=== PATIENT | female | born 1960 | race Caucasian/White ===

== ENCOUNTER 2017-10-26 10:50 | Emergency (ER) | payer BC ==
[2017-10-26] MEDS ORDERED: NA CHLORIDE 0.9% 1,000 ML ONE (11:27)
[2017-10-26] MEDS ORDERED: ONDANSETRON 4 MG/2 ML VIAL ONE (11:27)
[2017-10-26] MEDS ORDERED: IPRATROPIUM BROM 0.5MG/2.5ML ONE (11:29)
[2017-10-26] MEDS ORDERED: ALBUTEROL 2.5 MG/3 ML NEB SOL ONE (11:29)
[2017-10-26 11:33] LABS: Absolute Lymphocytes (CBC) 2.7 K/uL (0.7-4.9); Absolute Monocytes 0.6 K/uL (0.1-1.3); Absolute Neutrophil 9.1 K/uL (1.8-8.0); Basophils % 0.6 % (0-1.3); Eosinophils % 2.6 % (0-4.4); Hematocrit 44.2 % (36.0-45.0); MCH 24.9 pg (27.0-35.0); MCV 77.3 fL (80-100); MPV 7.2 fL (7.6-11.3); Monocytes % 4.8 % (3.3-12.3); RBC Red Blood Cell Count 5.71 M/uL (3.86-4.86)
--- NOTE | 2017-10-26 11:50 | RAD REPORT ---
EXAM DESCRIPTION: RAD - Chest Pa And Lat (2 Views) - 10/26/2017 11:34 am CLINICAL HISTORY: COUGH Chest pain. COMPARISON: Chest Pa And Lat (2 Views) dated 07/04/2017; Chest Pa And Lat (2 Views) dated 09/05/2016 FINDINGS: The lungs are clear. The heart is normal in size. No displaced fractures. IMPRESSION: No acute or concerning finding suspected.
[2017-10-26 12:22] LABS: ALT/SGPT 34 U/L (12-78); AST/SGOT 28 U/L (15-37); Albumin 3.9 g/dL (3.4-5.0); Alkaline Phosphatase 72 U/L (45-117); Amylase Level 39 U/L (25-115); BUN Blood Urea Nitrogen 13 mg/dL (7-18); Bicarbonate 33 mmol/L (21-32); Bilirubin Direct 0.2 mg/dL (0-0.2); Bilirubin Total 0.9 mg/dL (0.2-1.0); Glucose Level 184 mg/dL (74-106); Lipase 155 U/L (73-393); Protein, Total 7.3 g/dL (6.4-8.2); Sodium Level 128 mmol/L (136-145)
[2017-10-26 12:26] LABS: Potassium 2.7 mmol/L (3.5-5.1)
[2017-10-26] MEDS ORDERED: POTASSIUM 25 MEQ EFFERV TAB ONE (12:37)
--- NOTE | 2017-10-26 13:18 | EDPHYS ---
Physician Documentation [facility] Name: Ashley Alonzo Age: 57 yrs Sex: Female : 1960 Arrival Date: 10/26/2017 Time: 10:53 Bed 13 Private MD: Charles Raymond V ED Physician Adalberto Pepper HPI: 10/26 11:14 This 57 yrs old Female presents to ER via Ambulatory with complaints of jmm Nausea/Vomiting. 11:14 The patient presents to the emergency department with vomiting, diarrhea. Onset: The jmm symptoms/episode began/occurred gradually, 2 week(s) ago. Possible causes: unknown. This is a 57 year old female with a history of DM, HTN that presents to the ED with cough, vomiting, and diarrhea which have been worsening over the past 2 weeks. Patient states she recently finished a course of antibiotics and is on the last day of an oral steroid. Patient denies fever but admits to chills. . Historical: - Allergies: 10:58 PENICILLINS; sv - Home Meds: 10:58 Metformin Oral [Active]; sv - PMHx: 10:58 Diabetes - NIDDM; Hypertension; sv - PSHx: 10:58 ; Appendectomy; Cholecystectomy; sv - Immunization history:: Adult Immunizations up to date. - Social history:: Smoking status: Patient/guardian denies using tobacco. - Ebola Screening: : No symptoms or risks identified at this time. ROS: 11:14 Eyes: Negative for injury, pain, redness, and discharge, Cardiovascular: Negative for jmm chest pain, palpitations, and edema. 11:14 Back: Negative for injury and pain, : Negative for injury, bleeding, discharge, and swelling, MS/Extremity: Negative for injury and deformity, Skin: Negative for injury, rash, and discoloration, Neuro: Negative for headache, weakness, numbness, tingling, and seizure. 11:14 Constitutional: Positive for chills. 11:14 Respiratory: Positive for cough. 11:14 Abdomen/GI: Positive for nausea and vomiting, vomiting, diarrhea. 11:14 All other systems are negative. Exam: 11:14 Head/Face: atraumatic. Chest/axilla: Normal chest wall appearance and motion. jmm Nontender with no deformity. No lesions are appreciated. Cardiovascular: Regular rate and rhythm. No gallops, murmurs, or rubs. Full/Equal distal pulses. Respiratory: Lungs have equal breath sounds bilaterally, clear to auscultation. No rales, rhonchi or wheezes noted. No increased work of breathing, no retractions or nasal flaring. Abdomen/GI: Soft, non-tender, with normal bowel sounds. No distension or tympany. No guarding or rebound. No evidence of tenderness throughout. 11:14 Constitutional: The patient appears in no acute distress, alert, awake. 11:14 Skin: Appearance: Color: normal in color. 11:14 Neuro: Orientation: is normal, Mentation: is normal, Memory: is normal. 11:14 Psych: Behavior/mood is pleasant, cooperative. Vital Signs: 10:58 BP 126 / 91; Pulse 112; Resp 18; Temp 98.1; Pulse Ox 97% ; Weight 100.24 kg; Height 5 sv ft. 8 in. (172.72 cm); Pain 0/10; 11:49 BP 97 / 74; Pulse 95; Resp 18; Pulse Ox 100% on R/A; Pain 0/10; em 12:17 BP 106 / 67; Pulse 99; Resp 18; Pulse Ox 100% on Nebulizer Mask; em 13:47 BP 113 / 67; Pulse 102; Resp 17; Pulse Ox 97% on R/A; Pain 0/10; em 10:58 Body Mass Index 33.60 (100.24 kg, 172.72 cm) sv MDM: 11:10 Patient medically screened. [facility] 13:16 Data reviewed: vital signs, nurses notes, lab test result(s), radiologic studies, plain [facility] films. Counseling: I had a detailed discussion with the patient and/or guardian regarding: the historical points, exam findings, and any diagnostic results supporting the discharge/admit diagnosis, lab results, radiology results, smoking cessation. Response to treatment: the patient's symptoms have markedly improved after treatment. ED course: After administration of IV fluids, patient states that she feels much better. Patient advised to follow up with PCP or return to the ED if SOB worsens or if she is unable to tolerate fluids by mouth. Patient has no abdominal pain on palpation. I do not currently suspect appendicitis. . 10/26 11:00 Order name: Amylase, Serum; Complete Time: 12:36 [facility] 10/26 11:00 Order name: Basic Metabolic Panel; Complete Time: 12:36 [facility] 10/26 11:00 Order name: CBC with Diff; Complete Time: 11:44 [facility] 10/26 11:00 Order name: Creatinine for Radiology; Complete Time: 11:56 [facility] 10/26 11:00 Order name: Hepatic Function; Complete Time: 12:36 [facility] 10/26 11:00 Order name: Lipase; Complete Time: 12:36 [facility] 10/26 11:00 Order name: IV Saline Lock; Complete Time: 12:08 [facility] 10/26 11:00 Order name: Ketone, Serum; Complete Time: 12:36 [facility] 10/26 11:11 Order name: Chest Pa And Lat (2 Views) XRAY; Complete Time: 11:51 [facility] 10/26 11:00 Order name: Labs collected and sent; Complete Time: 12:08 [facility] Administered Medications: 11:46 Drug: NS 0.9% 1000 ml Route: IV; Rate: 1 bolus; Site: left antecubital; em 12:36 Follow up: IV Status: Completed infusion; IV Intake: 1000ml em 11:46 Drug: DuoNeb (3:1) (2.5 mg - 0.5 mg) 3 ml Route: Nebulizer; em 12:36 Follow up: Response: No adverse reaction; Wheezing diminished em 11:48 Drug: Zofran 4 mg Route: IVP; Site: left antecubital; iw 12:36 Follow up: Response: No adverse reaction em 12:43 Drug: K-Lyte Effervescent Tablet 50 mEq Route: PO; em 13:19 Follow up: Response: No adverse reaction em Disposition: 16:36 Co-signature as Attending Physician, Adalberto Pepper MD. rn Disposition: 10/26/17 13:18 Discharged to Home. Impression: Acute bronchitis, Diarrhea, unspecified, Vomiting. - Condition is Stable. - Discharge Instructions: Acute Bronchitis, Diarrhea, Nausea and Vomiting. - Prescriptions for Florastor - take 1 tablet by ORAL route once daily for 5 days; 5 tablet. Zofran 4 mg Oral Tablet - take 1 tablet by ORAL route every 12 hours As needed; 20 tablet. Albuterol Sulfate 90 mcg/actuation Inhalation - inhale 1-2 puff by INHALATION route every 4-6 hours; 1 Inhaler. - Medication Reconciliation Form, Thank You Letter, Antibiotic Education, Prescription Opioid Use form. - Follow up: Charles Raymond MD; When: 2 - 3 days; Reason: Continuance of care. Signatures: Dispatcher [employer] Maddie Bishop, RN RN Cory Black PA PA Collins Blake, WOOL CARDER WOOL CARDER em Estephania Prince RN RN iw Nieto, Roman, MD MD furnace erector: (The following items were deleted from the chart) 13:20 11:00 Urine Dipstick-Ancillary ordered. [facility] em 13:49 13:18 10/26/2017 13:18 Discharged to Home. Impression: Acute bronchitis; Diarrhea, em unspecified; Vomiting. Condition is Stable. Forms are Medication Reconciliation Form, Thank You Letter, Antibiotic Education, Prescription Opioid Use. Follow up: Charles Raymond; When: 2 - 3 days; Reason: Continuance of care. [facility]
--- NOTE | 2017-10-26 13:18 | ER ---
Nurse's Notes [facility] Name: Ashley Alonzo Age: 57 yrs Sex: Female : 1960 Arrival Date: 10/26/2017 Time: 10:53 Bed 13 Private MD: Charles Raymond V Diagnosis: Acute bronchitis;Diarrhea, unspecified;Vomiting Presentation: 10/26 10:55 Presenting complaint: Patient states: lightheadedness, diaphoresis, nausea, diarrhea, sv vomiting x 3 days. Transition of care: patient was not received from another setting of care. Onset of symptoms was October 23, 2017. Risk Assessment: Do you want to hurt yourself or someone else? Patient reports no desire to harm self or others. Care prior to arrival: None. 10:55 Method Of Arrival: Ambulatory sv 10:55 Acuity: STEPHANIE 3 sv 11:49 Initial Sepsis Screen: Does the patient meet any 2 criteria? No. Patient's initial em sepsis screen is negative. Does the patient have a suspected source of infection? No. Patient's initial sepsis screen is negative. Historical: - Allergies: 10:58 PENICILLINS; sv - Home Meds: 10:58 Metformin Oral [Active]; sv - PMHx: 10:58 Diabetes - NIDDM; Hypertension; sv - PSHx: 10:58 ; Appendectomy; Cholecystectomy; sv - Immunization history:: Adult Immunizations up to date. - Social history:: Smoking status: Patient/guardian denies using tobacco. - Ebola Screening: : No symptoms or risks identified at this time. Screenin:34 Abuse screen: Denies threats or abuse. Nutritional screening: No deficits noted. em Tuberculosis screening: No symptoms or risk factors identified. Fall Risk None identified. Assessment: 11:22 General: Appears in no apparent distress. uncomfortable, ill, Behavior is calm, em cooperative. Pain: Denies pain. Neuro: Level of Consciousness is awake, alert, obeys commands, Oriented to person, place, time, situation, Denies weakness dizziness. Cardiovascular: Capillary refill. Respiratory: Airway is patent Respiratory effort is even, unlabored, Respiratory pattern is regular, symmetrical, Breath sounds are clear bilaterally. GI: Abdomen is round Reports nausea, vomiting, Patient currently denies pain. : No signs and/or symptoms were reported regarding the genitourinary system. EENT: No signs and/or symptoms were reported regarding the EENT system. Derm: Skin is intact, Skin is diaphoretic, Skin is pale. Musculoskeletal: Range of motion: intact in all extremities. 11:35 Reassessment: Patient appears in no apparent distress at this time. I agree with above iw assessment by Collins Souza LVN. 12:49 Reassessment: Patient appears in no apparent distress at this time. Patient and/or em family updated on plan of care and expected duration. Pain level reassessed. Patient is alert, oriented x 3, equal unlabored respirations, skin warm/dry/pink. Patient states feeling better. 13:47 Reassessment: Patient appears in no apparent distress at this time. Patient and/or em family updated on plan of care and expected duration. Pain level reassessed. Patient is alert, oriented x 3, equal unlabored respirations, skin warm/dry/pink. Patient states feeling better. Vital Signs: 10:58 BP 126 / 91; Pulse 112; Resp 18; Temp 98.1; Pulse Ox 97% ; Weight 100.24 kg; Height 5 sv ft. 8 in. (172.72 cm); Pain 0/10; 11:49 BP 97 / 74; Pulse 95; Resp 18; Pulse Ox 100% on R/A; Pain 0/10; em 12:17 BP 106 / 67; Pulse 99; Resp 18; Pulse Ox 100% on Nebulizer Mask; em 13:47 BP 113 / 67; Pulse 102; Resp 17; Pulse Ox 97% on R/A; Pain 0/10; em 10:58 Body Mass Index 33.60 (100.24 kg, 172.72 cm) sv ED Course: 10:53 Patient arrived in ED. mr 10:53 Charles Raymond MD is Private Physician. mr 10:57 Triage completed. sv 10:59 Cory Ott PA is PHCP. jmm 10:59 Adalberto Pepper MD is Attending Physician. jmm 10:59 Arm band placed on left wrist. sv 11:09 Collins Souza LVN is Primary Nurse. em 11:30 Initial lab(s) drawn, by me, sent to lab. Inserted saline lock: 20 gauge in left em antecubital area, using aseptic technique. Blood collected. 11:31 Chest Pa And Lat (2 Views) XRAY In Process Unspecified. EDMS 11:37 Patient has correct armband on for positive identification. Placed in gown. Bed in low em position. Call light in reach. 13:17 Charles Raymond MD is Referral Physician. jmm 13:20 No provider procedures requiring assistance completed. em 13:47 IV discontinued, intact, bleeding controlled, No redness/swelling at site. Pressure em dressing applied. Administered Medications: 11:46 Drug: NS 0.9% 1000 ml Route: IV; Rate: 1 bolus; Site: left antecubital; em 12:36 Follow up: IV Status: Completed infusion; IV Intake: 1000ml em 11:46 Drug: DuoNeb (3:1) (2.5 mg - 0.5 mg) 3 ml Route: Nebulizer; em 12:36 Follow up: Response: No adverse reaction; Wheezing diminished em 11:48 Drug: Zofran 4 mg Route: IVP; Site: left antecubital; iw 12:36 Follow up: Response: No adverse reaction em 12:43 Drug: K-Lyte Effervescent Tablet 50 mEq Route: PO; em 13:19 Follow up: Response: No adverse reaction em Intake: 12:36 IV: 1000ml; Total: 1000ml. em Outcome: 13:18 Discharge ordered by MD. jmm 13:48 Discharged to home via wheelchair. em 13:48 Condition: good 13:48 Discharge instructions given to patient, Instructed on discharge instructions, follow up and referral plans. medication usage, Demonstrated understanding of instructions, follow-up care, medications, Prescriptions given X 3. 13:49 Patient left the ED. em Signatures: Dispatcher [employer] EDMaddie Sanders, RN RN Cory Black PA PA Radha Villasenor mr Harley, Collins, PHOTOGRAPHER NEWS PHOTOGRAPHER NEWS em Estephania Prince RN RN iw Corrections: (The following items were deleted from the chart) 13:48 12:49 Reassessment: Patient appears in no apparent distress at this time. Patient em and/or family updated on plan of care and expected duration. Pain level reassessed. Patient is alert/active/playful, equal unlabored respirations, skin warm/dry/pink. Patient states feeling better. em
== END 2017-10-26 13:49 | disposition home or self-care (01) ==
LOC: ER 10:50
DX: J20.9 Acute bronchitis, unspecified (principal); R11.10 Vomiting, unspecified; R19.7 Diarrhea, unspecified; I10 Essential (primary) hypertension; E11.9 Type 2 diabetes mellitus without complications; Z88.0 Allergy status to penicillin
CPT/HCPCS: 36415; 71046; 80048; 80076; 82010; 82150; 83690; 85025; 94640; 96361; 96374; 99284; J2405; J7030